=== PATIENT | female | born 2005 | race Two or more races ===

== ENCOUNTER 2025-04-17 13:26 | Emergency (ER) | payer OTHER ==
[~2025-04-17] VITALS: Ht 167.6 cm; Wt 76.2 kg
[2025-04-17 13:48] VITALS: BP 100/67
[2025-04-17] MEDS ORDERED: ONE A DAY PREN1 EACH PO (13:52)
[2025-04-17] MEDS ORDERED: AMPICILLIN TRI500 MG PO (13:52)
[2025-04-17] MEDS ORDERED: ONDANSETRON HCL 2 MG/ML VIAL ONE (15:23)
[2025-04-17] MEDS ORDERED: FAMOTIDINE/PF 20 MG/2 ML VIAL ONE (15:23)
[2025-04-17] MEDS ORDERED: ACETAMINOPHEN 500 MG GEL..CAP PO ONE ×2 (15:23→15:30)
[2025-04-17] MEDS ORDERED: 0.9 % SODIUM CHLORIDE 1,000 ML IV ONE (15:30)
[2025-04-17] MEDS ORDERED: ONDANSETRON HCL 2 MG/ML VIAL IV ONE (15:30)
[2025-04-17] MEDS ORDERED: FAMOTIDINE/PF 20 MG/2 ML VIAL IV ONE (15:30)
[2025-04-17 15:58] LABS: BASO % 0.4 % (0.1-1.2); EOS # 0.04 (0.04-0.54); EOS % 0.6 % (0.7-7.0); LYMPH # 0.40 (1.18-3.74); LYMPH % 5.9 % (19.3-53.1); MEAN PLATELET VOLUME 10.00 fl (9.4-12.4); MONO # 0.73 (0.24-0.82); MONO % 10.8 % (4.7-12.5); NEUT # 5.56 (1.56-6.13); NEUT % 82.0 % (34.0-71.1); RED CELL DISTRIBUTION WIDTH 13.3 % (11.6-14.4)
[2025-04-17 16:05] LABS: URINE APPEARANCE Clear; URINE BILIRRUBIN Negative (NEGATIVE); URINE BLOOD Negative; URINE COLOR Dark Yellow; URINE GLUCOSE Negative (NEGATIVE); URINE LEUKOCYTE Negative; URINE NITRATE Negative; URINE PROTEIN 30 (NEGATIVE); URINE UROBILINOGEN 1.0 E.U./dl
[2025-04-17 16:08] LABS: URINE BACTERIA 1184.3 uL (0.0-1933); URINE EPITHELIAL CELLS 54.2 uL (0.0-38.8); URINE RBC 9.2 uL (0.0-20.8); URINE WBC 21.0 uL (0.0-23.2)
[2025-04-17 16:14] LABS: COVID-19 AG POSITIVE (NEGATIVE)
[2025-04-17 16:29] LABS: URINE CAST 0.29 uL (0.0-1.40); URINE KETONE >=160 (NEGATIVE)
[2025-04-17 16:31] LABS: TYPE CELLS SQUAMOUS
[2025-04-17 16:32] LABS: URINE MUCUS MODERATE
[2025-04-17 17:00] LABS: ALT/SGPT 21.0 U/L (12-78); AST/SGOT 15.0 U/L (15-37); BILIRUBIN TOTAL 0.27 mg/dL (0.3-1.2); BUN CREA RATIO 10.0 (7.0-25.0); CREATININE SERUM 0.48 mg/dL (0.55-1.02); GFR 163.26; GLOBULINA 3.9 G/DL (2.4-3.5); GLUCOSE FASTING 74.0 mg/dL (65-100); OSMOLALITY SERUM 272.0 MOSM/KG (275-295)
[2025-04-17 17:02] LABS: HCG QUANTITATIVE 95322.0 mUI/mL (1-3)
[2025-04-17 17:45] VITALS: O2SAT 97
[2025-04-17] MEDS ORDERED: ONDANSETRON ODT4 MG PO (17:45)
[2025-04-17] MEDS ORDERED: TUSSIN DM LIQU118 ML PO (17:45)
[2025-04-17] MEDS ORDERED: PEPCID AC20 MG PO (17:45)
== END 2025-04-17 20:08 ==
LOC: ER 13:26
PROVIDERS: General Practice
DX: O98.512 Other viral diseases complicating pregnancy, second trimester (principal); U07.1 COVID-19; Z3A.14 14 weeks gestation of pregnancy